=== PATIENT | male | born 1995 | race Caucasian/White ===

== ENCOUNTER 2018-06-26 13:11 | Emergency (ER) | payer OTHER ==
[~2018-06-26] VITALS: Ht 177.8 cm; Wt 59.0 kg
[2018-06-26] MEDS ORDERED: CLEOCIN HCL150 MG PO (13:37)
[2018-06-26 13:45] VITALS: BP 131/89
== END 2018-06-26 13:46 | disposition home or self-care (01) ==
LOC: M.ERS 13:11
DX: M27.63 Post-osseointegration mechanical failure of dental implant (principal); K02.9 Dental caries, unspecified; F17.200 Nicotine dependence, unspecified, uncomplicated; Z88.8 Allergy status to other drugs, medicaments and biological substances; Z88.0 Allergy status to penicillin